=== PATIENT | female | born 2000 | race Caucasian/White ===

== ENCOUNTER 2019-01-19 20:14 | Emergency (ER) | payer MEDICAID ==
[~2019-01-19] VITALS: Ht 165.1 cm; Wt 83.9 kg
[2019-01-19 20:48] VITALS: Ht 165.1 cm; Wt 83.9 kg
[2019-01-19 23:46] LABS: BASOPHIL % 0.6 % (0-2); PLATELET COUNT 282 x10^3mcL (130-400)
[2019-01-19 23:53] LABS: microscopic required? YES; urine erythrocyte 1+ (NEGATIVE)
[2019-01-19 23:59] LABS: RED CELL DISTRIBUTION WIDTH 23.7 % (11.5-14.5)
[2019-01-20 01:58] VITALS: BP 101/71
== END 2019-01-20 01:58 | disposition home or self-care (01) ==
LOC: ED 20:14
PROVIDERS: Emergency Medicine
DX: O20.0 Threatened abortion (principal); O99.211 Obesity complicating pregnancy, first trimester; Z3A.01 Less than 8 weeks gestation of pregnancy; Z68.30 Body mass index [BMI] 30.0-30.9, adult
CPT/HCPCS: 36415